=== PATIENT | male | born 1935 | race Caucasian/White ===

== ENCOUNTER 2017-08-02 05:48 | Day surgery (SDC) | payer MEDICARE ==
[2017-08-02] VITALS (13 sets, daily range): BP systolic 119–166; BP diastolic 60–88
[~2017-08-02] VITALS: Ht 175.3 cm; Wt 65.3 kg
[2017-08-02] MEDS ORDERED: BENAZEPRIL HCL40 MG ORAL (06:59)
[2017-08-02] MEDS ORDERED: Fluorescein Strips ONE (06:59)
[2017-08-02] MEDS ORDERED: SODIUM CHLORIDE 2% LEFT EYE (06:59)
[2017-08-02] MEDS ORDERED: AMLODIPINE BESYL5 MG ORAL (06:59)
[2017-08-02] MEDS ORDERED: KETOROLAC TROMET5 M1 LEFT EYE (06:59)
[2017-08-02] MEDS ORDERED: DUREZOL5 M1 LEFT EYE (06:59)
[2017-08-02] MEDS ORDERED: BSS 500ml btl ONE (06:59)
[2017-08-02] MEDS ORDERED: TRUSOPT10 ML BOTH EYES (06:59)
[2017-08-02] MEDS ORDERED: Timolol 0.5% Op Soln 2.5ml ONE (07:00)
[2017-08-02] MEDS ORDERED: Pred Forte 1% Opth Susp 1ml ONE ×2 (07:00→07:40)
[2017-08-02] MEDS ORDERED: Maxitrol Opth Oint 3.5gm ONE (07:00)
[2017-08-02] MEDS ORDERED: Lidocaine 1% MPF 10mg/ml 5ml ONE (07:00)
[2017-08-02] MEDS ORDERED: Ciprofloxacin Opth Soln 2.5ml ONE ×2 (07:00→07:40)
[2017-08-02] MEDS ORDERED: Dexamethasone 4mg/ml vial ONE (07:01)
[2017-08-02] MEDS ORDERED: Bupivacaine 0.75% 30ml vial INJ ONE (07:01)
[2017-08-02] MEDS ORDERED: Tetracaine 0.5% Opth 4ml Soln ONE (07:01)
[2017-08-02] MEDS ORDERED: EPINEPHrine 1mg/1ml Amp ONE (07:01)
[2017-08-02] MEDS ORDERED: Carbachol 0.01% Op Soln 1.5ml vial ONE (07:02)
[2017-08-02] MEDS ORDERED: BSS 15ml BTL ONE (07:02)
[2017-08-02] MEDS ORDERED: Acetylcholine Injection (OR) ONE (07:02)
[2017-08-02] MEDS ORDERED: Lidocaine 2% MPF 5ml Vial INJ ONE (07:02)
[2017-08-02] MEDS ORDERED: Povidone-Iodine 5% opth solution ONE (07:03)
[2017-08-02] MEDS ORDERED: Brimonidine 0.2% Opth Sol LEFT EYE ONE (07:30)
[2017-08-02] MEDS ORDERED: Pred Forte 1% Opth Susp 1ml LEFT EYE SCH (07:30)
[2017-08-02] MEDS ORDERED: Ciprofloxacin Opth Soln 2.5ml LEFT EYE SCH (07:30)
[2017-08-02] MEDS ORDERED: Pred Forte 1% Opth Susp 1ml LEFT EYE ONE (07:30)
--- NOTE | 2017-08-02 07:36 | Pre-Procedure Note/Attestation ---
Pre-Procedure Note/Attestation Complete Prior to Procedure Planned Procedure: left - Revision of wound, left eye Indications for Procedure Pre-Operative Diagnosis: Wound dehiscence, left eye Attestation I attest that I discussed the nature of the procedure; its benefits; risks and complications; and alternatives (and the risks and benefits of such alternatives ), prior to the procedure, with the patient (or the patient's legal personal financial representative). I attest that, if there was a reasonable possibility of needing a blood transfusion, the patient (or the patient's legal personal financial representative) was given the [facility] standardized written summary, pursuant to the [place] Blood Safety Act ([place] Health and Safety Code # 1645, as amended). I attest that I re-evaluated the patient just prior to the surgery and that there has been no change in the patient's H&P, except as documented below: Rodney White MD Aug 02, 2017 07:36
[2017-08-02] MEDS ORDERED: APRACLONIDINE 1% LEFT EYE SCH (07:40)
--- NOTE | 2017-08-02 07:43 | Anethesia Preoperative Eval ---
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 Surgical Procedure: Christopher Anesthesia History: none Family History: no anesthesia problems Allergies: Coded Allergies: No Known Allergies (Unverified , 08/02/17) Medications: see eMAR Past Medical History Cardiovascular: Reports: HTN, Denies: CAD, [place], valve dz, arrhythmia, other Pulmonary: Denies: asthma, COPD, JL, other Gastrointestinal/Genitourinary: Reports: GERD - mild, CRI, Denies: ESRD, other Neurologic/Psychiatric: Denies: dementia, CVA, depression/anxiety, TIA, other Endocrine: 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 Exam Physician Exam Last Vital Signs Date Time Temp Pulse Resp B/P (MAP) Pulse Ox O2 Delivery O2 Flow Rate FiO2 08/02/17 07:01 97.7 74 20 166/88 100 Constitutional: NAD Neurologic: CN 2-12 intact Cardiovascular: RRR, no M/R/G Respiratory: CTA Gastrointestinal: S/NT/ND Airway Exam Mallampati Score: Class II MO: full Neck: stiff ROM: limited Teeth: missing Dentures: no upper, no lower Anesthesia Pre-op A/P Labs see chart Studies Pre-op Studies: EKG - NSR Risk Assessment & Plan Assessment: ASA 3 Plan: MAC Status Change Before Surgery: No Pre-Antibiotics Drug: none DA ANTOINE M.D. Aug 02, 2017 07:43
[2017-08-02] MEDS ORDERED: Sterile Water Irrig 1000ml IRRIG ONE (08:00)
[2017-08-02] MEDS ORDERED: LR 1000ml ONE (08:00)
[2017-08-02] MEDS ORDERED: Propofol 200mg/20ml IV ONE (08:00)
[2017-08-02] MEDS ORDERED: fentaNYL 100 mcg/2 mL IV ONE (08:00)
[2017-08-02] MEDS ORDERED: Midazolam 2mg/2ml Inj ONE (08:00)
[2017-08-02] MEDS ORDERED: Akten 3.5% 1ml Btl ONE (08:02)
[2017-08-02] MEDS ORDERED: LR 1000ml 1,000 ML IVLG SCH (08:11)
[2017-08-02] MEDS ORDERED: DiphenhydrAMINE 50mg/ml Inj IVP PRN (08:15)
[2017-08-02] MEDS ORDERED: fentaNYL 100 mcg/2 mL IV PRN (08:15)
[2017-08-02] MEDS ORDERED: acetaZOLAMIDE 500mg Inj ONE (08:50)
--- NOTE | 2017-08-02 08:51 | Discharge Instructions ---
Discharge Instructions Discharge Instructions Follow Up Orders Lie flat on back until appointment tomorrow with Dr White Keep shield in place except to place eye drops Continue preop eye drops For Congestive Heart Failure Reminder Report to your physician any weight gain of 5 pounds or more in one week. Rodney White MD Aug 02, 2017 08:51
--- NOTE | 2017-08-02 08:52 | Brief Operative Note ---
Immediate Post Operative Note Operative Note Pre-op Diagnosis: Wound dehiscence, left eye Procedure: Repair of wound dehiscence, left eye Post-op Diagnosis: same as pre-op Surgeon: Herlinda White MD Anesthesiologist: Dr Ryder Anesthesia: local, MAC Specimen: none Complications: none Fluids: as noted in charg Estimated Blood Loss: none Implant(s) used?: No Rodney White MD Aug 02, 2017 08:52
--- NOTE | 2017-08-02 09:47 | Immediate Post-Op Evaluation ---
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 Aug 02, 2017 09:47
--- NOTE | 2017-08-02 11:06 | 48 Hour Post Anesthesia Eval ---
Post Anesthesia Evaluation Procedure: L eye revision of corneal transplant Date of Evaluation: Aug 02, 2017 Time of Evaluation: 11:05 Blood Pressure Systolic: 138 0: 74 Pulse Rate: 62 Respiratory Rate: 20 Temperature (Fahrenheit): 97.6 O2 Sat by Pulse Oximetry: 98 Airway: patent Nausea: No Vomiting: No Pain Intensity: 3 Hydration Status: adequate Cardiopulmonary Status: stable Mental Status/LOC: patient returned to baseline Follow-up Care/Observations: n/a Post-Anesthesia Complications: none Follow-up care needed: ready to discharge DA ANTOINE M.D. Aug 02, 2017 11:06
--- NOTE | 2017-08-02 21:15 | Operative Note - Dictated ---
DATE OF OPERATION: 08/02/2017 SURGEON: Rodney White M.D. STENOGRAPHER SECRETARY SURGEON: None. ANESTHESIOLOGIST: Saqib Ryder M.D. ANESTHESIA: Local/standby/monitored anesthesia care. PREOPERATIVE DIAGNOSIS: Wound dehiscence, of DSEK graft, left eye. POSTOPERATIVE DIAGNOSIS: Wound dehiscence, of DSEK graft, left eye. PROCEDURE: Repair of wound dehiscence, left eye. SPECIMENS: None. COMPLICATIONS: None. INDICATIONS FOR SURGERY: The patient is status post DSEK of the left eye and the graft was noted to have slipped superiorly. The patient understands the risk of surgery including infection, bleeding, need for further surgery, loss of vision, no improvement in vision, loss of the eye, loss of life, glaucoma, retinal detachment, understands these risks and elects to proceed with surgery. FINDINGS: The patient's DSEK graft was displaced superiorly, but also attached. OPERATIVE NOTE: After informed consent was obtained, the patient was brought into the operating room and placed in a supine position. Cardiac and respiratory monitors were attached. A time-out was performed and all criteria were met and everyone in the room agreed. The left eye was draped and prepped in a sterile manner for ocular surgery. A lid speculum was placed in the eye. I was able to enter . An 8 mm optical zone marker was used to praneeth the center of the cornea on the corneal surface. I then took a reverse Sinskey hook and went through the paracentesis at approximately 5 o'clock and tried to move the DSEK graft inferiorly, but it was very well attached. I then used the same reverse Sinskey hook to get into the interface to separate the DSEK graft from the host cornea. After this was done, again air was placed into the anterior chamber and I was able to slide the DSEK graft inferiorly and centered according to the overlying praneeth on the corneal surface. A full air fill was placed into the anterior chamber and the graft was noted to be very well centered. I then took a curved spatula and struck the corneal surface very gingerly to try and remove any interface fluid and it was noted that the DSEK graft did slip inferiorly this time. I then placed a complete air fill in the anterior chamber and then used reverse Sinskey hook to reposition the graft so was nicely centered. Again, I then tried to stroke the surface of the corneal surface to try to remove any fluid interface and this time again the graft did slip nasally. I then took the Sinskey hook and brushed it up against the recipient cornea to the overlying 8 mm praneeth to try and roughen up the stroma. I then again was unable to move the donor disc to the center part of the cornea so was centered according to the overlying duron on the corneal surface. Again, I very gingerly stroked the surface of the cornea to try to remove any interface fluid and at this time the cornea straightened, nicely centered and positioned, and did not move. I let them last a full 15 minutes air fill in the anterior chamber and the donor disc remained intact and well positioned. It appeared to be attached for 360 degrees. After 15 minutes, the air was partially removed and replaced with BSS. The DSEK graft was well positioned and the iris was in good position and the anterior chamber was very deep. All wounds were checked and found to be Deng negative. The lid speculum and drapes were removed from the eye and drops of ciprofloxacin and Pred Forte were applied to the eye, followed by Maxitrol ointment and then a shield. The patient left the operating room awake, alert, in stable condition and is to get Diamox 500 mg IV x1 and to lie flat on his back for one hour prior to being discharged. Rodney White M.D. DR: PRABHU JOB#: [id number] CC:
== END 2017-08-02 11:10 | disposition home or self-care (01) ==
LOC: SUR 05:48
DX: T81.32XA Disruption of internal operation (surgical) wound, not elsewhere classified, initial encounter (principal); Y83.2 Surgical operation with anastomosis, bypass or graft as the cause of abnormal reaction of the patient, or of later complication, without mention of misadventure at the time of the procedure; Y92.009 Unspecified place in unspecified non-institutional (private) residence as the place of occurrence of the external cause; Y77.3 Surgical instruments, materials and ophthalmic devices (including sutures) associated with adverse incidents; I10 Essential (primary) hypertension; K21.9 Gastro-esophageal reflux disease without esophagitis; I12.9 Hypertensive chronic kidney disease with stage 1 through stage 4 chronic kidney disease, or unspecified chronic kidney disease; E10.22 Type 1 diabetes mellitus with diabetic chronic kidney disease; N18.9 Chronic kidney disease, unspecified; M19.90 Unspecified osteoarthritis, unspecified site; E78.5 Hyperlipidemia, unspecified; Z81.8 Family history of other mental and behavioral disorders; Z81.1 Family history of alcohol abuse and dependence; Z82.49 Family history of ischemic heart disease and other diseases of the circulatory system
CPT/HCPCS: 66250; 82962; J0171; J1100; J1120; J2250; J2704; J3010; J7120; 94003; 94150